=== PATIENT | female | born 1990 | race Caucasian/White ===

== ENCOUNTER 2016-11-19 10:38 | Inpatient (IN) | payer OTHER ==
[~2016-11-19] VITALS: Ht 149.9 cm; Wt 67.3 kg
--- NOTE | 2016-11-19 10:42 | ED.REPORT ---
HPI-General Illness Date of Service November 19, 2016 ED Provider: Dilan Ortiz DO The pt is a 26 y/o female w/ a hx of type 1 diabetes presenting to the ED via EMS due to hyperglycemia. On scene she had a blood sugar level in the 400s. The pt has not been taking her Humalog for approximately one week but has been taking her Lantus. She began feeling especially unwell yesterday and has vomited twice this morning. She denies fever, diarrhea, cough, abdominal pain, or other signs of infection. The pt denies irregular menstrual period or any chance of . Nursing Notes Stated Complaint: HYPERGLYCEMIA Nursing Notes Reviewed: Yes Allergies: Coded Allergies: No Known Allergies (Unverified , 11/19/16) Scheduled Insulin Glargine (Lantus U100 Insulin Vial) 100 Unit/Ml Vial 16 UNIT SUBQ BID Insulin Lispro (HumaLOG U100 Insulin Pen) 100 Unit/1 Ml Insuln.pen 10 UNIT SUBQ TIDAC Blood Sugar Lispro Correction <151 0 units 151-175 1 unit 176-200 2 units 201-225 3 units 226-250 4 units 251-275 5 units 276-300 6 units 301-325 7 units 326-350 8 units 351-375 9 units 376-400 10 units >400 12 units Check blood sugars before meals and at bedtime. Use correction factor only before meals. General Time Seen by MD: 10:40 Chief Complaint Other (Hyperglycemia ) Hx Obtained From: Patient, EMS Arrived By: Ambulance Sudden in Onset?: No Onset Occurred: Yesterday Symptom Duration: Since onset Recent Healthcare: No recent hospitalization, Recent doctor visit Similar Sx Previous: Yes Past Medical History Past Medical History Type 1 diabetes Past Surgical History None reported Smoking History Never Smoker Social History Alcohol Use: Denies alcohol use Ambulatory Status Independent Review of Systems Denies irregular menstrual period Full Review of Systems Constitutional: Denies: Fever Respiratory: Denies: Non-productive cough GI: Reports: Vomiting, Denies: Abdominal pain, Diarrhea Female: Denies: Dysuria Complete sys rev & neg: except as marked. Physical Exam Vital Signs Vital Signs Date Time Temp Pulse Resp B/P Pulse Ox O2 Delivery O2 Flow Rate FiO2 11/19/16 11:45 124 24 128/79 100 Room Air 11/19/16 10:49 36.4 133 25 153/83 100 Room Air Initial VS: Reviewed General/Constitutional: Awake, Alert Mildly slow to respond Head / Eyes: Atraumatic, Normocephalic ENT: Atraumatic, Airway patent Mouth: Positive: Mucous membranes dry Neck: Atraumatic, Supple, Full range of motion Respiratory / Chest: No chest tenderness, No chest wall deformity Kussmaul respirations Tachypnea Cardiovascular: Regular rhythm, Heart sounds NL Heart Rate / Rhythm: Positive: Tachycardia 2+ pulses Abdomen: Atraumatic, Soft, Non-tender Back: Atraumatic, Full range of motion Lower Extremity / Pelvis / MS: Atraumatic, Full range of motion, No edema Skin: Atraumatic, Color NL, No rash, Warm, Dry Interpretation & Diagnostics Lab Results Interpretation Result Diagram: 11/19/16 1114 11/19/16 1114 Test 11/19/16 11:14 11/19/16 12:07 White Blood Count 17.8th/mm3 (3.8-10.1) Red Blood Count 5.02mil/mm3 (3.90-5.20) Hemoglobin 15.2g/dL (12.0-15.6) Hematocrit 47.6% (35.0-46.0) Mean Corpuscular Volume 94.8fL (81-100) Mean Corpuscular Hemoglobin 30.3pg (27.0-35.0) Mean Corpuscular Hemoglobin Concent 31.9% (32.0-37.0) Red Cell Distribution Width 13.2% (12.3-15.4) Platelet Count 461bil/L (150-400) Neutrophils (%) (Auto) 83.8% (40-74) Lymphocytes (%) (Auto) 9.5% (14-46) Monocytes (%) (Auto) 5.7% (4-12) Eosinophils (%) (Auto) 0.2% (0-5) Basophils (%) (Auto) 0.4% (0-3) Sodium Level 135mEq/L (134-144) Potassium Level 4.5mEq/L (3.5-5.2) Chloride Level 92mEq/L (97-108) Carbon Dioxide Level 4mmol/L (18-29) Blood Urea Nitrogen 16mg/dL (6-20) Creatinine 0.99mg/dL (0.57-1.00) Estimat Glomerular Filtration Rate 99mL/min (>59) Glucose Level 369mg/dL (60-99) Calcium Level 9.4mg/dL (8.5-10.1) Magnesium Level 2.0mg/dL (1.6-2.6) Total Bilirubin 0.2mg/dL (0.0-1.2) Aspartate Amino Transf (AST/SGOT) 20U/L (0-50) Alanine Aminotransferase (ALT/SGPT) 17U/L (0-32) Alkaline Phosphatase 148U/L (25-150) Total Protein 7.9g/dL (6.4-8.4) Albumin 4.5g/dL (3.4-5.0) Lipase 29U/L (13-60) Ketones Small (Negative) Urine Color Straw (YELLOW) Urine Appearance Hazy (CLEAR,HAZY) Urine pH 5.5 (5.0-8.0) Urine Specific [place] 1.026 (1.003-1.035) Urine Protein 100mg/dL (NEG,TRACE) Urine Glucose (UA) 500mg/dL (NEGATIVE) Urine Ketones >80mg/dL (NEGATIVE) Urine Occult Blood Moderate (NEGATIVE) Urine Nitrite Negative (NEGATIVE) Urine Bilirubin Negative (NEGATIVE) Urine Urobilinogen Normalmg/dL (NORMAL) Urine Leukocyte Esterase Small (NEGATIVE) Urine RBC 0-2/hpf (0-2) Urine WBC 6-10/hpf (0-5) Urine Epithelial Cells Few/hpf (NONE-MOD) Urine Crystals Amorphous urates (NONE Urine Bacteria Moderate/hpf (NONE-FEW) Urine Hyaline Casts None/lpf (NONE) Urine Granular Casts 5-20 (NONE SEEN) Urine Waxy Casts None seen (NONE SEEN) Urine Red Blood Cell Casts None seen (NONE SEEN) Urine White Blood Cell Casts None seen (NONE SEEN) Urine Mucus None seen (None Seen) Urine Trichomonas None seen (NONE SEEN) Urine Yeast Few (NONE SEEN) Urinalysis Comment None Urine Culture Reflexed Indicated Lab Results Interpretation: pH 6.939/pCO2 20/pO2 98.9/cHCO3 (P) 4.1/cBase (B) -29.8 ECG Interpretation ECG Interpretation: SInus tachycardia w/ a rate of 121 Otherwise normal ECG Time: 11:10 Interpreted by: ED physician X-Ray Chest Interpretation Chest Xray Interpretation: IMPRESSION: No acute disease Dictated by: Burt Domingo M.D. on 11/19/2016 at 12:12 Approved by: Burt Domingo M.D. on 11/19/2016 at 12:13 Interpretation / Wet Read by: Interpret - Radiologist Re-Eval/Medical Decision Med Decision/Clinical Course Overall no findings of infection likely DKA due to noncompliance. IV bicarbonate and insulin drip initiated in the ER. Source of Hx: EMS Time of Eval: 11:18 Re-Evaluation/Progress Note: Rechecked pt. Discussed diagnosis of DKA. Time of Eval: 11:47 Re-Evaluation/Progress Note: Pt rechecked, who is stable. The diagnosis and plan for admission are discussed. The pt understands and agrees with the plan. All questions are addressed at this time. Consultation : Referral / Consult Name: Fabricio Isaac MD Consulted With: Hospitalist Call Returned at: 12:44 Collar Worker: Will see patient, Agrees with eval, Agrees with plan, Accepts admit Counseled Regarding: Diagnosis, Lab results, Need for admission Discharge & Departure Primary Impression: DKA, type 1 Diabetes mellitus complication detail: without coma Qualified Code: E10.10 - Type 1 diabetes mellitus with ketoacidosis without coma Disposition: ADMITTED TO HOSPITAL Discharge Condition All VS Reviewed: Yes Condition: Stable Referrals: Suki Patel MD (PCP) Crit Care Except Billable Proc Time Spent: 30-74 minutes Services Performed: Patient management by me, Time spent at bedside, Reviewing test results Critical Care Notes: See MDM Scribe Attestation Portions of this note were transcribed by Henrik Mujica and Ivon Goldstein. I, Dr. Angel Newell personally performed the history, physical exam and medical decision- making; I reviewed and confirmed the accuracy of the information in the transcribed note. Signed by: Henrik Mujica and Ivon Goldstein, Yamilet, 11/19/16 and 1316. copies to: Suki Patel MD, Timothy S DO November 19, 2016 10:42 Henrik Mujica November 19, 2016 11:17 IVON GOLDSTEIN November 19, 2016 11:57
[2016-11-19] MEDS ORDERED: 0.9% Sodium Chloride 1,000 ML IV ONE (10:46)
[2016-11-19 10:49] VITALS: BP 153/83; PULSE 133; RESP 25; O2SAT 100
[2016-11-19] MEDS ORDERED: Ondansetron 2 mg/mL 2 mL Inj IVPUSH PRN ×3 (10:50→15:15)
[2016-11-19] MEDS ORDERED: 0.9% Sodium Chloride 1,000 ML IV SCH ×2 (10:50→12:53)
--- NOTE | 2016-11-19 11:13 | ABG ---
DateTimeAnalyzed 11:08:00 -_ pH ____6.939 - pCO2 ___20.1__ -mmHg pO2 ___98.9__ -mmHg HCO3- ____4.1__ -mmol/L ABE __-29.8__ -mmol/L tHb ___16.4__ -g/dL O2Hb ___91.8__ -% COHb ____1.9__ -% MetHb ____1.3__ -% sO2 ___94.8__ -% FIO2 ___21.0__ -% Drawn By RN - Date/Time Notified____ 11:12:00 -_ Notified By btl - Notified Whom ___Dr. O'Maria C - B 756 -mmHg tO2 ___21.2__ -Vol% Adrián test N/A -
[2016-11-19] MEDS ORDERED: Insulin Human REGular Inj 100 UNIT in 0.9% Sodium Chloride 100 ML IV SCH (11:20)
[2016-11-19 11:25] LABS: BASOPHILS % (AUTO) 0.4 % (0-3); EOSINOPHILS % (AUTO) 0.2 % (0-5); MONOCYTES % (AUTO) 5.7 % (4-12); Mean Corpuscular Hemoglobin 30.3 pg (27.0-35.0); Mean Corpuscular Volume 94.8 fL (81-100); NEUTROPHILS % (AUTO) 83.8 % (40-74); Platelet Count 461 bil/L (150-400)
[2016-11-19] MEDS ORDERED: Sodium Bicarb (50 mEq) 8.4% 1 mEq/mL 50 mL Syringe IVPUSH ONE (11:25)
[2016-11-19 11:45] VITALS: BP 128/79; PULSE 124; RESP 24; O2SAT 100
[2016-11-19] MEDS ORDERED: INSU100V7 SUBQ (12:01)
[2016-11-19] MEDS ORDERED: INSU100I18 SUBQ (12:07)
--- NOTE | 2016-11-19 12:14 | DRSVH ---
PROCEDURE: X-RAY CHEST ONE VIEW, PORTABLE ([id number]) INDICATIONS: DKA, tachypnea, tachycardia TECHNIQUE: One view of the chest was acquired. COMPARISON: None. FINDINGS: Surgical changes and devices: None. Lungs and pleura: No pleural effusions or pneumothorax. Lungs are clear. Mediastinum: Mediastinal contours appear normal. Heart size is normal. Bones and chest wall: No suspicious bony lesions. Overlying soft tissues appear unremarkable. IMPRESSION: No acute disease Dictated by: Burt Domingo M.D. on 11/19/2016 at 12:12 Approved by: Burt Domingo M.D. on 11/19/2016 at 12:13
[2016-11-19 12:16] LABS: Lipase 29 U/L (13-60)
[2016-11-19] MEDS ORDERED: Alum-Mag Hydrox-Simeth 30 mL Suspension PO PRN ×2 (12:55→15:15)
[2016-11-19 13:01] LABS: APPEARANCE,URINE HAZY (CLEAR,HAZY); COLOR,URINE STRAW (YELLOW); PH,URINE 5.5 (5.0-8.0)
[2016-11-19 13:02] LABS: OCCULT BLOOD,URINE MODERATE (NEGATIVE); UROBILINOGEN,URINE NORMAL (NORMAL)
[2016-11-19 13:03] LABS: YEAST,URINE FEW (NONE SEEN)
[2016-11-19 13:20] VITALS: BP 114/55; PULSE 113; RESP 18
[2016-11-19 14:34] VITALS: BP 114/55; PULSE 113; RESP 18; O2SAT 100
--- NOTE | 2016-11-19 14:35 | NUR ---
To CCU rm 2015 from E.R. Pt A&Ox3; up to BR steady on feet. Insulin gtt started in E.R. per DKA protocol; monitoring labs q2h as well as bedside Bgs. Admission screens reported complete while pt in E.R.
[2016-11-19] MEDS ORDERED: Lactated Ringer's 1,000 ML IV ONE ×4 (14:40)
[2016-11-19] MEDS ORDERED: Polyethylene Glycol (PEG) 17 Gm Powder PO PRN (15:15)
[2016-11-19 16:00] VITALS: BP 97/63; PULSE 112; RESP 24; O2SAT 98
[2016-11-19 17:24] LABS: Phosphorus 2.2 mg/dL (2.5-4.9)
--- NOTE | 2016-11-19 17:45 | NUR ---
Continue NPO status per MD order; ice chips only.
[2016-11-19] MEDS ORDERED: D5W1/2NS 1,000 mL IV PRN (19:45)
--- NOTE | 2016-11-19 19:58 | PCM.HPMED ---
Subjective Date of Service November 19, 2016 Primary Provider: Admitting Physician: Fabricio Isaac MD Primary Care Physician: Suki Patel MD Attending Physician: Fabricio Isaac MD Admit Status: From the Emergency Department Chief Complaint: Diabetic ketoacidosis History of Present Illness: 26-year-old type I diabetic presented to our emergency room via EMS due to hyperglycemia, with a blood sugar level in the 400s. She reported that she had not been taking her Humalog for about a week but had been taking her Lantus. This was due to problems with actually being able to get the Humalog. She began feeling unwell yesterday, vomited twice the morning of admission. She denies fever, diarrhea, cough, abdominal pain, any other signs of infection. She states that she has had DKA twice before, once treated at [facility] , and once in [place] Review of Systems: Complete review of systems is otherwise negative except as noted above in the history of present illness. Allergies Coded Allergies: No Known Allergies (Unverified , 11/19/16) Home Medications Insulin Lantus 16 units subcutaneous twice a day Insulin lispro 10 units subcutaneous 3 times a day with meals PMH Type I diabetes mellitus Surgical History None Family History She reports both parents are healthy without any apparent medical problems. She does have a paternal grandmother who is a type I diabetic. Social History Hx Alcohol Use: No Hx Substance Use: No Hx Tobacco Use: No Smoking Status: Never Smoker Living Arrangement: with Family Exam Vital Signs Vital Sign - Last Date Time Temp Pulse Resp B/P Pulse Ox O2 Delivery O2 Flow Rate FiO2 11/19/16 14:34 36.4 113 18 114/55 100 Room Air Exam General: Alert, Oriented X3, Cooperative, No Acute Distress Head: Normocephalic, atraumatic. External ears normal. Eyes: PERRLA, EOMI. Anicteric sclerae. Mouth: Mouth Normal, Mucous Membranes Moist/[place] Neck: Neck supple with full range of motion. Chest & Lungs: Clear to auscultation bilaterally with no crackles, wheezes, or rhonchi. Cardiovascular: Regular Rate/Rhythm, Normal S1, Normal S2, No Murmurs/Rubs/ Gallops Abdomen: Non-tender, Non-distended, No masses, Normoactive bowel tones, Soft Musculoskeletal: Normal Range of Motion Extremities: No cyanosis/clubbing/edema bilaterally Neurological: Grossly Neurologically Intact, Cranial Nerves 2-12 Intact, Normal Speech Lab and Diagnostics Labs Laboratory Tests Test 11/19/16 11:14 11/19/16 12:07 11/19/16 13:45 11/19/16 16:38 White Blood Count 17.8th/mm3 (3.8-10.1) Red Blood Count 5.02mil/mm3 (3.90-5.20) Hemoglobin 15.2g/dL (12.0-15.6) Hematocrit 47.6% (35.0-46.0) Mean Corpuscular Volume 94.8fL (81-100) Mean Corpuscular Hemoglobin 30.3pg (27.0-35.0) Mean Corpuscular Hemoglobin Concent 31.9% (32.0-37.0) Red Cell Distribution Width 13.2% (12.3-15.4) Platelet Count 461bil/L (150-400) Neutrophils (%) (Auto) 83.8% (40-74) Lymphocytes (%) (Auto) 9.5% (14-46) Monocytes (%) (Auto) 5.7% (4-12) Eosinophils (%) (Auto) 0.2% (0-5) Basophils (%) (Auto) 0.4% (0-3) Sodium Level 135mEq/L (134-144) 139mEq/L (134-144) 138mEq/L (134-144) Potassium Level 4.5mEq/L (3.5-5.2) 3.6mEq/L (3.5-5.2) 4.4mEq/L (3.5-5.2) Chloride Level 92mEq/L (97-108) 103mEq/L (97-108) 104mEq/L (97-108) Carbon Dioxide Level 4mmol/L (18-29) 4mmol/L (18-29) 7mmol/L (18-29) Blood Urea Nitrogen 16mg/dL (6-20) 11mg/dL (6-20) 11mg/dL (6-20) Creatinine 0.99mg/dL (0.57-1.00) 0.63mg/dL (0.57-1.00) 0.61mg/dL (0.57-1.00) Estimat Glomerular Filtration Rate 99mL/min (>59) 166mL/min (>59) 173mL/min (>59) Glucose Level 369mg/dL (60-99) 188mg/dL (60-99) 101mg/dL (60-99) Calcium Level 9.4mg/dL (8.5-10.1) 7.6mg/dL (8.5-10.1) 7.8mg/dL (8.5-10.1) Magnesium Level 2.0mg/dL (1.6-2.6) Total Bilirubin 0.2mg/dL (0.0-1.2) 0.3mg/dL (0.0-1.2) Aspartate Amino Transf (AST/SGOT) 20U/L (0-50) 31U/L (0-50) Alanine Aminotransferase (ALT/SGPT) 17U/L (0-32) 14U/L (0-32) Alkaline Phosphatase 148U/L (25-150) 102U/L (25-150) Total Protein 7.9g/dL (6.4-8.4) 6.3g/dL (6.4-8.4) Albumin 4.5g/dL (3.4-5.0) 3.6g/dL (3.4-5.0) Lipase 29U/L (13-60) Ketones Small (Negative) Urine Color Straw (YELLOW) Urine Appearance Hazy (CLEAR,HAZY) Urine pH 5.5 (5.0-8.0) Urine Specific [place] 1.026 (1.003-1.035) Urine Protein 100mg/dL (NEG,TRACE) Urine Glucose (UA) 500mg/dL (NEGATIVE) Urine Ketones >80mg/dL (NEGATIVE) Urine Occult Blood Moderate (NEGATIVE) Urine Nitrite Negative (NEGATIVE) Urine Bilirubin Negative (NEGATIVE) Urine Urobilinogen Normalmg/dL (NORMAL) Urine Leukocyte Esterase Small (NEGATIVE) Urine RBC 0-2/hpf (0-2) Urine WBC 6-10/hpf (0-5) Urine Epithelial Cells Few/hpf (NONE-MOD) Urine Crystals Amorphous urates (NONE Urine Bacteria Moderate/hpf (NONE-FEW) Urine Hyaline Casts None/lpf (NONE) Urine Granular Casts 5-20 (NONE SEEN) Urine Waxy Casts None seen (NONE SEEN) Urine Red Blood Cell Casts None seen (NONE SEEN) Urine White Blood Cell Casts None seen (NONE SEEN) Urine Mucus None seen (None Seen) Urine Trichomonas None seen (NONE SEEN) Urine Yeast Few (NONE SEEN) Urinalysis Comment None Urine Culture Reflexed Indicated Osmolality 296 (275-300) Phosphorus Level 2.2mg/dL (2.5-4.9) Test 11/19/16 18:15 Sodium Level 137mEq/L (134-144) Potassium Level 4.1mEq/L (3.5-5.2) Chloride Level 103mEq/L (97-108) Carbon Dioxide Level 9mmol/L (18-29) Blood Urea Nitrogen 11mg/dL (6-20) Creatinine 0.57mg/dL (0.57-1.00) Estimat Glomerular Filtration Rate 187mL/min (>59) Glucose Level 125mg/dL (60-99) Calcium Level 7.6mg/dL (8.5-10.1) Microbiology 11/19/16 Urine Culture, Received Pending Result Diagram: 11/19/16 1114 11/19/16 1815 X-Rays, CTs and MRIs Chest x-ray with no acute cardiopulmonary process evident 12-lead ECG Sinus tachycardia with rate of 121 Assessment & Plan 26-year-old type I diabetic without her mealtime insulin for about a week, did partially treated herself the morning of admission with one dose of Humalog, but was already quite ill with vomiting. Diabetic ketoacidosis. Present on admission. Improving -Nausea resolved -Anion gap improving, 39 on admission at 1114, 25 at 1815 -Hyperglycemia resolving with evening level of 125 -Aggressive hydration with IV fluids, normal saline and lactated Ringer's, 8 L total to be completed -DKA protocol in place with insulin drip and potassium magnesium replacement protocol -H A1c pending -Resume subcutaneous insulin regimen in the morning -Diabetic diet in the morning PRN medications available for nausea, heartburn, constipation: Ondansetron, Maalox, Senna, Miralax Patient is admitted under inpatient status with expected length of stay greater than 2 midnights due to severity of presenting symptoms, risk of adverse event, and complexity of treatment plan. Pain Evaluation: Adequate Pain Control VTE Prophylaxis: Sub-Q Heparin (Unfractionated) Resuscitation Status: CPR: Attempt Resuscitation Attending Statement The patient was seen and examined together with Dr. Cullen on 11/19/2016 and I agree with the history, exam and plan as outlined in the note above. . Cabrera Cullen DO November 19, 2016 19:58 Fabricio Isaac MD November 20, 2016 16:01
[2016-11-19 20:00] VITALS: BP 97/55; PULSE 98; RESP 13; O2SAT 100
[2016-11-19] MEDS ORDERED: KCl 40 mEq/500 mL D5W(K 3 - 3.7 & Creat < 2) IV ONE (22:40)
[2016-11-20] VITALS: BP 98/72; PULSE 92; RESP 18; O2SAT 100
[2016-11-20] MEDS ORDERED: Dextrose 10% 250 ML IV PRN (00:15)
[2016-11-20] MEDS: Heparin 5,000 Unit/mL Inj SUBQ SCH ×3 (00:30→16:30)
[2016-11-20] MEDS: Lactated Ringer's 1,000 ML IV SCH ×3 (00:41→12:45)
[2016-11-20 04:00] VITALS: BP 99/54; PULSE 89; RESP 14; O2SAT 98
--- NOTE | 2016-11-20 05:51 | NUR ---
Insulin/ Anion gap/ NPO/ Mental Status Potassium protocol initiated at 2200, Potassium was 3.5 during the time. see flow sheet for ivf/insulin gtt, total iv rate of 250ml/hr per MD. Anion gap 15. Pt agitated with glucose checks, refuses to have continuous pulse oximeter, and refuses to have hourly BP cuff readings. Pt refuses assessment of pedal pulses and administration of SubQ heparin. Pt on NPO status and is hungry. pt naps when left alone, Pt oriented, denies nausea, and able to ambulate to restroom with supervision. md aware of am lab results and anion gap, ivf and insulin gtt continued as ordered,
[2016-11-20] MEDS ORDERED: KCl 40 mEq/500 mL D5W(K 3 - 3.7 & Creat < 2) IV ONE (06:30)
[2016-11-20] MEDS ORDERED: Glucose 40% Oral Gel 15 Gm Tube PO PRN (07:26)
[2016-11-20 07:59] VITALS: BP 97/66; PULSE 86; RESP 14; O2SAT 100
[2016-11-20] MEDS: Insulin LISPRO 300 Unit/3 mL Inj SUBQ SCH ×3 (08:00→13:25)
[2016-11-20] MEDS ORDERED: Insulin GLARgine 100 Unit/mL Syringe SUBQ SCH (08:00)
[2016-11-20 08:35] LABS: BASOPHILS % (AUTO) 0.4 % (0-3); EOSINOPHILS % (AUTO) 1.3 % (0-5); Mean Corpuscular Hemoglobin 30.5 pg (27.0-35.0); Mean Corpuscular Volume 89.3 fL (81-100); NEUTROPHILS % (AUTO) 59.8 % (40-74); Platelet Count 314 bil/L (150-400)
--- NOTE | 2016-11-20 10:00 | NUR ---
Bridged to SQ Lantus + SS coverage/breakfast taken well Pt A7Ox3, denies nausea, lightheadedness. Up independently. See Bgs & serial labs.
[2016-11-20 12:35] VITALS: BP 87/49; PULSE 80; RESP 12; O2SAT 100
--- NOTE | 2016-11-20 15:32 | PCM.DIMED ---
Terence Nj DO 11/20/16 1532: Discharge Instructions Date of Service November 20, 2016 Dates of Hospitalization November 19, 2016 at 12:52 Discharge Diagnosis Discharge Diagnosis DKA. Your diabetes was out of control as you are not able to get your short acting insulin as needed. However, it appears to be under better control at this time, and based on our discussion you are able to obtain the insulin that you need from your pharmacy through insurance. Medication Instructions Continue your medications as before. Please note that our records at the time of your admission indicated that you were taking Lantus twice a day at 16 units each dose. I discussed this further with you in the room, and do confirm that you are taking 30 units of Lantus at night. Please continue to do so. Diet Diabetic Activity No restrictions Call your provider Fever or Chills, Shortness of breath, Bleeding, Chest pain, Vomitting, Excessive diarrhea, Weakness (unilateral), Other (if you experience any new or concerning symptoms, please call your doctor, or return to the hospital.) Patient Instructions There needs to be improvement on how often you checked her blood sugar. Please check your blood sugar at the very least 4 times a day: Fasting (first thing in the morning before you eat or drink anything other than water or black coffee), before lunch, before dinner, at bedtime. Please discuss this blood sugar check schedule with your primary doctor when you follow-up. I strongly recommend that you follow-up with an digital community manager (a specialist in diabetes) for improved control of your diabetes. Please note the clinic address and telephone number below. Follow-up plan Please follow-up with Dr. Patel within 1-2 weeks to discuss her hospitalization. Please follow-up with [facility] endocrinology (Dr. Dasilva, or Dr. Hill): [address], [place] [phone] Fabricio Isaac MD 11/20/16 1602: Discharge Instructions Attending's Statement The patient was seen and examined together with Dr. Mustafa on 11/20/2016 and I agree with the history, exam and plan as outlined in the note above. . Terence Nj DO November 20, 2016 15:32 Fabricio Isaac MD November 20, 2016 16:02
--- NOTE | 2016-11-20 16:00 | NUR ---
Diabetic materials, DKA information reviewed with Pt Information received well; pt able to verbalize understanding of dosing, freq BG checks, symptoms and treatment.
--- NOTE | 2016-11-20 18:30 | NUR ---
Discharged home All discharge documentation reviewed in detail w/ pt and her Grandfather, including appts with PCP and Ventilation Mechanic. Stated understanding by pt. VVS, took evening meal 100%. All belongings with pt @ discharge, including her cell phone. IV SL x2 dc'd intact. Accompanied by RN to pt's grandfather's vehicle.
--- NOTE | 2016-11-21 15:01 | PCM.DC.MED ---
Discharge Summary Date of Service November 21, 2016 Dates of Hospitalization Date of Hospital Admission November 19, 2016 at 12:52 Date of Discharge: November 20, 2016 Providers: Admitting Physician: Fabricio Isaac MD Primary Care Physician: Suki Patel MD Attending Physician: Fabricio Isaac MD Diagnosis at Time of Discharge Diagnosis at Time of Discharge DKA. Procedures XRay, CTs & MRIs Chest x-ray with no acute cardiopulmonary process evident ECG 12 Lead Sinus tachycardia with rate of 121 Brief History The following is taken from Dr. Cullen's H&P dated 11/19/2016: 26-year-old type I diabetic presented to our emergency room via EMS due to hyperglycemia, with a blood sugar level in the 400s. She reported that she had not been taking her Humalog for about a week but had been taking her Lantus. This was due to problems with actually being able to get the Humalog. She began feeling unwell yesterday, vomited twice the morning of admission. She denies fever, diarrhea, cough, abdominal pain, any other signs of infection. She states that she has had DKA twice before, once treated at [facility] , and once in [place] [facility] Diabetic ketoacidosis. Present on admission. Resolved -Patient presented in DKA with abdominal pain, nausea and vomiting. No clear indication of infectious cause. Noted that she was unable to obtain her Humalog. With fluid administration and IV insulin patient's GAP slowly closed, and electrolytes demonstrated stability once in normal ranges. Transition to subcutaneous insulin was appropriate and successful. Patient tolerated diet well without recurrence of symptoms. At time of discharge, eating and drinking without problem, voiding and stooling without difficulty, ambulating independently without problem, pain-free. Exam Vital Signs (Last) Date Time Temp Pulse Resp B/P Pulse Ox O2 Delivery O2 Flow Rate FiO2 11/20/16 12:35 36.5 80 12 87/49 100 Room Air Exam Physical exam on day of discharge: General: Alert, Oriented X3, Cooperative, No Acute Distress Head: Normocephalic, atraumatic. External ears normal. Eyes: PERRL, EOMI. Anicteric sclerae. Mouth: Mouth Normal, Mucous Membranes Moist/[place] Neck: Neck supple with full range of motion. Chest & Lungs: Clear to auscultation bilaterally with no crackles, wheezes, or rhonchi. Cardiovascular: Regular Rate/Rhythm, Normal S1, Normal S2, No Murmurs/Rubs/ Gallops Abdomen: Non-tender, Non-distended, No masses, Normoactive bowel tones, Soft Musculoskeletal: Normal Range of Motion Extremities: No cyanosis/clubbing/edema bilaterally Neurological: Grossly Neurologically Intact, Cranial Nerves 2-12 Intact, Normal Speech Test 11/19/16 11:14 11/19/16 12:07 11/19/16 16:38 11/20/16 04:25 Magnesium Level 2.0mg/dL (1.6-2.6) Lipase 29U/L (13-60) Urine Color Straw (YELLOW) Urine Appearance Hazy (CLEAR,HAZY) Urine pH 5.5 (5.0-8.0) Urine Specific [place] 1.026 (1.003-1.035) Urine Protein 100mg/dL (NEG,TRACE) Urine Glucose (UA) 500mg/dL (NEGATIVE) Urine Ketones >80mg/dL (NEGATIVE) Urine Occult Blood Moderate (NEGATIVE) Urine Nitrite Negative (NEGATIVE) Urine Bilirubin Negative (NEGATIVE) Urine Urobilinogen Normalmg/dL (NORMAL) Urine Leukocyte Esterase Small (NEGATIVE) Urine RBC 0-2/hpf (0-2) Urine WBC 6-10/hpf (0-5) Urine Epithelial Cells Few/hpf (NONE-MOD) Urine Crystals Amorphous urates (NONE Urine Bacteria Moderate/hpf (NONE-FEW) Urine Hyaline Casts None/lpf (NONE) Urine Granular Casts 5-20 (NONE SEEN) Urine Waxy Casts None seen (NONE SEEN) Urine Red Blood Cell Casts None seen (NONE SEEN) Urine White Blood Cell Casts None seen (NONE SEEN) Urine Mucus None seen (None Seen) Urine Trichomonas None seen (NONE SEEN) Urine Yeast Few (NONE SEEN) Urinalysis Comment None Urine Culture Reflexed Indicated Hemoglobin A1c 13.9% (4.8-5.6) Osmolality 296 (275-300) Phosphorus Level 2.2mg/dL (2.5-4.9) Total Bilirubin 0.3mg/dL (0.0-1.2) Aspartate Amino Transf (AST/SGOT) 31U/L (0-50) Alanine Aminotransferase (ALT/SGPT) 14U/L (0-32) Alkaline Phosphatase 102U/L (25-150) Total Protein 6.3g/dL (6.4-8.4) Albumin 3.6g/dL (3.4-5.0) Ketones Positive (Negative) Test 11/20/16 08:15 11/20/16 16:26 White Blood Count 6.7th/mm3 (3.8-10.1) Red Blood Count 4.39mil/mm3 (3.90-5.20) Hemoglobin 13.4g/dL (12.0-15.6) Hematocrit 39.2% (35.0-46.0) Mean Corpuscular Volume 89.3fL (81-100) Mean Corpuscular Hemoglobin 30.5pg (27.0-35.0) Mean Corpuscular Hemoglobin Concent 34.2% (32.0-37.0) Red Cell Distribution Width 13.2% (12.3-15.4) Platelet Count 314bil/L (150-400) Neutrophils (%) (Auto) 59.8% (40-74) Lymphocytes (%) (Auto) 30.6% (14-46) Monocytes (%) (Auto) 7.0% (4-12) Eosinophils (%) (Auto) 1.3% (0-5) Basophils (%) (Auto) 0.4% (0-3) Sodium Level 143mEq/L (134-144) Potassium Level 3.9mEq/L (3.5-5.2) Chloride Level 112mEq/L (97-108) Carbon Dioxide Level 17mmol/L (18-29) Blood Urea Nitrogen 7mg/dL (6-20) Creatinine 0.51mg/dL (0.57-1.00) Estimat Glomerular Filtration Rate 212mL/min (>59) Glucose Level 95mg/dL (60-99) Calcium Level 8.9mg/dL (8.5-10.1) Discharge Medications Discharge Medications Insulin Glargine (Lantus U100 Insulin Vial) 100 Unit/Ml Vial 16 UNIT SUBQ BID ( Reported) Insulin Lispro (HumaLOG U100 Insulin Pen) 100 Unit/1 Ml Insuln.pen 10 UNIT SUBQ TIDAC (Reported) Blood Sugar Lispro Correction <151 0 units 151-175 1 unit 176-200 2 units 201-225 3 units 226-250 4 units 251-275 5 units 276-300 6 units 301-325 7 units 326-350 8 units 351-375 9 units 376-400 10 units >400 12 units Check blood sugars before meals and at bedtime. Use correction factor only before meals. Additional med instructions Continue your medications as before. Please note that our records at the time of your admission indicated that you were taking Lantus twice a day at 16 units each dose. I discussed this further with you in the room, and do confirm that you are taking 30 units of Lantus at night. Please continue to do so. Followup Plan Disposition: Home Follow-up plan Please follow-up with Dr. Patel within 1-2 weeks to discuss her hospitalization. Please follow-up with [facility] endocrinology (Dr. Dasilva, or Dr. Hill): [address] [place] [address] Discharge Diet: Diabetic Discharge Activity: No restrictions Patient Instructions There needs to be improvement on how often you checked her blood sugar. Please check your blood sugar at the very least 4 times a day: Fasting (first thing in the morning before you eat or drink anything other than water or black coffee), before lunch, before dinner, at bedtime. Please discuss this blood sugar check schedule with your primary doctor when you follow-up. I strongly recommend that you follow-up with an server security administrator (a specialist in diabetes) for improved control of your diabetes. Please note the clinic address and telephone number below. Time spent Greater than 30 minutes was spent in preparation of discharge with greater than 50% of that time dedicated to patient counseling and coordination of care. . Attending Statement The patient was seen and examined together with Dr. Mustafa on 11/20/2016 and I agree with the history, exam and plan as outlined in the note above. . copies to: Suki Patel MD, Collin T DO November 21, 2016 15:01 Fabricio Isaac MD November 21, 2016 17:03
== END 2016-11-20 18:30 | disposition home or self-care (01) | DRG 639 ==
LOC: SED 10:38 → CCU 12:52 → PCC 11-20 10:34
PROVIDERS: ADMIT Internal Medicine; ATTEND Internal Medicine
DX: E10.10 Type 1 diabetes mellitus with ketoacidosis without coma (principal); Z91.19 Patient's noncompliance with other medical treatment and regimen; Z79.4 Long term (current) use of insulin